=== PATIENT | female | born 1995 | race Caucasian/White ===

== ENCOUNTER 2024-02-04 15:43 | Emergency (ER) | payer SELFPAY ==
[~2024-02-04] VITALS: Ht 160 cm; Wt 114.4 kg
[2024-02-04 16:38] LABS: RSV AMPLIFICATION NEGATIVE (NEGATIVE)
[2024-02-04] MEDS: NS 1,000 ML IV ONE (17:45)
[2024-02-04] MEDS: ACETAMINOPHEN 500 MG TAB PO ONE (18:00)
[2024-02-04 18:10] LABS: BASO % 0.3 % (0.0-1.0); HEMATOCRIT 43.6 % (36.0-47.0); HEMOGLOBIN 14.5 g/dl (12.0-15.5); LYMPH # 1.3 10^3/uL (1.5-5.0); LYMPH % 8.9 % (24.0-44.0); MEAN CORPUSCULAR HEMOGLOBIN 29.5 pg (27.0-33.0); MEAN CORPUSCULAR HGB CONC 33.3 g/dl (32.0-36.5); MEAN CORPUSCULAR VOLUME 88.6 fl (80.0-96.0); MONO # 1.1 10^3/uL (0.0-0.8); MONO % 7.7 % (2.0-8.0); NEUTROPHILS # 11.8 10^3/uL (1.5-8.5); NEUTROPHILS % 82.7 % (36.0-66.0); PLATELET COUNT, AUTOMATED 290 10^3/uL (150-450); RED BLOOD COUNT 4.92 10^6/uL (4.00-5.40); WHITE BLOOD COUNT 14.2 10^3/uL (4.0-10.0)
[2024-02-04 18:35] LABS: HCG, SERUM QUALITATIVE NEGATIVE (NEGATIVE)
[2024-02-04 18:37] LABS: BLOOD UREA NITROGEN 9 MG/DL (9-23); CALCIUM LEVEL 9.8 MG/DL (8.5-10.1); CARBON DIOXIDE LEVEL 26 MMOL/L (20-31); CHLORIDE LEVEL 98 MMOL/L (98-107); CREATININE FOR GFR 0.88 MG/DL (0.55-1.30); GLOMERULAR FILTRATION RATE > 60.0 (>60); GLUCOSE, FASTING 101 MG/DL (60-100); POTASSIUM SERUM 3.7 MMOL/L (3.5-5.1); SODIUM LEVEL 133 MMOL/L (136-145)
[2024-02-04] MEDS ORDERED: ONDA4TAB6 PO (19:03)
[2024-02-04] MEDS ORDERED: CIPR-249 PO (19:03)
[2024-02-04] MEDS: ONDANSETRON 4MG 2ML VIAL IV ONE (19:05)
[2024-02-04] MEDS: ACETAMINOPHEN *IV* 1,000 MG in IV 1 EA IV ONE (19:06)
[2024-02-04] MEDS: CIPROFLOXACIN 400 MG in IV 1 EA IV ONE (19:06)
[2024-02-04 20:07] VITALS: BP 139/77; TEMP 99.1; O2SAT 97
== END 2024-02-04 20:11 | disposition home or self-care (01) ==
LOC: M ED 15:43
DX: N10 Acute pyelonephritis (principal); Z79.2 Long term (current) use of antibiotics; Z79.899 Other long term (current) drug therapy
CPT/HCPCS: 80048; 81001; 84703; 85025; 87088; 87186; 87631; 96361; 96365; 96374; 99284; J0131; J0744; J2405